=== PATIENT | female | born 1985 | race African-American/Black ===

== ENCOUNTER 2019-04-11 23:25 | Inpatient (IN) | payer OTHER ==
[2019-04-12] MEDS: LACTATED RINGER'S 500 ML IV (01:05)
[2019-04-12 01:25] LABS: ADD MAN DIFF? NO
[2019-04-12 01:32] LABS: WHITE BLOOD COUNT 7.2 10^3/ul (4.8-10.8)
[2019-04-12 01:32] LABS: BASOPHIL # 0.1 10^3/ul (0.0-0.1); BASOPHILS % 0.7 % (0.0-2.0); EOSINOPHILS # 0.2 10^3/ul (0.0-0.5); EOSINOPHILS % 3.1 % (0.0-7.0); HEMATOCRIT 31.7 % (37.0-47.0); HEMOGLOBIN 10.2 g/dl (12.0-16.0); LYMPHOCYTES # 1.4 10^3/ul (0.8-2.9); LYMPHOCYTES % 19.6 % (15.0-51.0); MEAN CORPUSCULAR HEMOGLOBIN 29.1 pg (29.0-33.0); MEAN CORPUSCULAR HGB CONC 32.2 g/dl (32.0-37.0); MEAN CORPUSCULAR VOLUME 90.6 fl (82.0-101.0); MONOCYTE # 0.7 10^3/ul (0.3-0.9); MONOCYTES % 9.4 % (0.0-11.0); NEUTROPHIL # 4.8 10^3/ul (1.6-7.5); NEUTROPHILS % 66.5 % (39.0-77.0); PLATELET COUNT 164 10^3/UL (140-415); RED CELL DISTRIBUTION WIDTH 13.6 % (11.5-14.5)
[2019-04-12 01:36] LABS: ADD UMIC NO; UR ASCORBIC ACID NEGATIVE (NEGATIVE); UR BILIRUBIN (Dip) NEGATIVE (NEGATIVE); UR BLOOD (Dip) NEGATIVE (NEGATIVE); UR CLARITY CLEAR (CLEAR); UR COLOR YELLOW (YELLOW); UR GLUCOSE (Dip) NEGATIVE (NEGATIVE); UR KETONES (Dip) 1+ mg/dL (NEGATIVE); UR LEUKOCYTE ESTERASE (Dip) NEGATIVE Leu/ul (NEGATIVE); UR NITRITE (Dip) NEGATIVE (NEGATIVE); UR SPECIFIC GRAVITY (Dip) 1.014 (1.003-1.030); UR TOTAL PROTEIN (Dip) NEGATIVE (NEGATIVE); UR UROBILINOGEN (Dip) NEGATIVE (NEGATIVE)
[2019-04-12 01:52] LABS: ALANINE AMINOTRANSFERASE 15 IU/L (13-69); ALBUMIN 3.2 g/dl (3.3-4.9); ALKALINE PHOSPHATASE 142 IU/L (42-121); ANION GAP 6 (5-13); ASPARTATE AMINO TRANSFERASE 20 IU/L (15-46); BILIRUBIN,INDIRECT 0.6 mg/dl (0-1.1); BILIRUBIN,TOTAL 0.6 mg/dl (0.2-1.3); BLOOD UREA NITROGEN 3 mg/dl (7-20); CALCIUM 8.9 mg/dl (8.4-10.2); CARBON DIOXIDE 25 mmol/L (21-31); CHLORIDE 106 mmol/L (97-110); CREATININE 0.54 mg/dl (0.44-1.00); Estimated GFR > 60 mL/min (>60); GLUCOSE 87 mg/dl (70-220); INR 1.02; PARTIAL THROMBOPLASTIN TIME 27.5 Sec (23.0-35.0); POTASSIUM 3.2 mmol/L (3.5-5.1); PROTIME 13.5 Sec (11.9-14.9); PT RATIO 1.1; SODIUM 137 mmol/L (135-144); TOTAL PROTEIN 6.4 g/dl (6.1-8.1); URIC ACID 4.3 mg/dl (3.1-7.9)
[2019-04-12] MEDS: LACTATED RINGER'S 1,000 ML IV ×4 (02:13→21:44)
[2019-04-12] MEDS: TERBUTALINE 1 MG/ML INJ SC ×4 (02:18→11:40)
[2019-04-12 02:22] LABS: HEPATITIS B SURFACE ANTIGEN NEGATIVE (NEGATIVE)
[2019-04-12] MEDS: BETAMET NA PHOS/AC(6 MG/ML) 2 ML INJ SYG IM ×2 (03:18→14:47)
[2019-04-12] MEDS ORDERED: CARBOPROST 250 MCG INJ IM ×2 (12:00→18:30)
[2019-04-12] MEDS ORDERED: OXYTOCIN 30 UNITS/LR 500 ML IV ×2 (12:00→18:30)
[2019-04-12] MEDS: CEFAZOLIN 2 GM/50 ML (PMX) 50 ML IVPB (12:00)
[2019-04-12] MEDS ORDERED: MISOPROSTOL 200 MCG TAB PR ×2 (12:00→18:30)
[2019-04-12] MEDS ORDERED: METHYLERGONOVINE 0.2 MG INJ IM ×2 (12:00→18:30)
[2019-04-12] MEDS ORDERED: CEFAZOLIN 2 GM/50 ML (PMX) 50 ML IVPB (12:30)
[2019-04-12] MEDS: AMPICILLIN 2 GM/NS (PMX) 100 ML IV (16:00)
[2019-04-12] MEDS: NACL 0.9% 3 ML SYG IV (16:09)
[2019-04-12] MEDS: ONDANSETRON 4 MG INJ IV (16:10)
[2019-04-12] MEDS: CITRIC ACID/NA CITRATE 30 ML CUP PO (16:10)
[2019-04-12] MEDS ORDERED: morphine SULFATE/PF (10 MG/10 ML) INJ (16:36)
[2019-04-12] MEDS ORDERED: OXYTOCIN 10 UNIT INJ (16:36)
[2019-04-12] MEDS ORDERED: METOCLOPRAMIDE 10 MG INJ (16:36)
[2019-04-12 17:14] LABS: RAPID PLASMA REAGIN NONREACTIVE (NR)
[2019-04-12] MEDS ORDERED: ONDANSETRON 4 MG INJ IV ×2 (17:30)
[2019-04-12] MEDS ORDERED: TRIMETHOBENZAMIDE 100 MG/ML VIAL IM ×2 (17:30)
[2019-04-12] MEDS ORDERED: DIPHENHYDRAMINE 50 MG INJ IV ×2 (17:30)
[2019-04-12] MEDS ORDERED: LABETALOL HCL 20MG INJ IV (17:30)
[2019-04-12] MEDS ORDERED: MEPERIDINE 25 MG INJ IV (17:30)
[2019-04-12] MEDS ORDERED: morphine 2 MG INJ IV ×2 (17:30)
[2019-04-12] MEDS ORDERED: ALBUTEROL 0.083% (NEB) 2.5 MG/3 ML AMP HHN (17:30)
[2019-04-12] MEDS ORDERED: IPRATROPIUM (NEB) 0.5 MG/2.5 ML AMP HHN (17:30)
[2019-04-12] MEDS ORDERED: EPHEDrine 25 MG/5 ML SYG IV (17:30)
[2019-04-12] MEDS ORDERED: hydrALAzine 20 MG INJ IV (17:30)
[2019-04-12] MEDS ORDERED: FENTAnyl 50 MCG/ML VIAL IV ×3 (17:30)
[2019-04-12] MEDS ORDERED: MIDAZOLAM 1 MG/ML 2 ML INJ IV (17:30)
[2019-04-12] MEDS ORDERED: NALOXONE (0.4 MG/ML) INJ IV (17:30)
[2019-04-12] MEDS ORDERED: NALBUPHINE HCL (10 MG/1 ML) INJ IV (17:30)
[2019-04-12] MEDS ORDERED: HYDROmorphONE 1 MG/5 ML IV SYRINGE IV ×2 (17:30)
[2019-04-12] MEDS ORDERED: KETAMINE (50 MG/ML) 10 ML VIAL (17:32)
[2019-04-12] MEDS ORDERED: KETOROLAC 30 MG INJ (17:33)
[2019-04-12] MEDS ORDERED: FENTAnyl 50 MCG/ML VIAL (17:38)
[2019-04-12 18:17] LABS: CBV Base Excess -4.6 mmol/L; CBV COHb 0.4 %; CBV Oxygen Sat 71.6 mmHG; Cord Blood Venous pO2 29.3 mmHG (15.0-45.0); Fraction OxyHgb Cord Venous 70.5 %; MODE ROOM AIR; MetHgb Cord Venous 1.2 %; Sample Type CBV; Site CORD
[2019-04-12 18:18] LABS: Arterial Cord Blood pCO2 32.8 mmHG (25-50); CBA Base Excess -5.2 mmol/L; CBA COHb 0.8 %; CBA Oxygen Sat 78.4 mmHG; CBA Total Hemglobin 12.4 g/dl; Cord Blood Arterial pO2 33.3 mmHG (15.0-45.0); Fraction OxyHgb Cord Arterial 76.9 %; MODE ROOM AIR; MetHgb Cord Arterial 1.1 %; Sample Type CBA; Site CORD
[2019-04-12] MEDS ORDERED: LANOLIN HPA 1 PKT TOP (18:30)
[2019-04-12] MEDS ORDERED: METHYLERGONOVINE 0.2 MG TAB PO (18:30)
[2019-04-12] MEDS: OXYTOCIN 30 UNITS/LR 500 ML IV (19:26)
[2019-04-12] MEDS: AMPICILLIN 1 GM/NS (PMX) 50 ML IV (20:00)
[2019-04-12] MEDS: HYDROmorphONE 1 MG/5 ML IV SYRINGE IV (20:08)
[2019-04-12] MEDS: SENNA/DOCUSATE NA (8.6MG/50MG) TAB PO (22:30)
[2019-04-13] MEDS: KETOROLAC 30 MG INJ IV ×2 (00:13→10:29)
[2019-04-13] MEDS: AMPICILLIN 1 GM/NS (PMX) 50 ML IV ×2 (04:00)
[2019-04-13] MEDS: NACL 0.9% 3 ML SYG IV (05:37)
[2019-04-13] MEDS: LACTATED RINGER'S 1,000 ML IV ×2 (06:03→14:29)
[2019-04-13 08:47] LABS: ADD MAN DIFF? NO
[2019-04-13 08:54] LABS: WHITE BLOOD COUNT 20.1 10^3/ul (4.8-10.8)
[2019-04-13 08:54] LABS: ABNORMAL IP MESSAGE 1; BASOPHILS % 0.1 % (0.0-2.0); LYMPHOCYTES # 1.1 10^3/ul (0.8-2.9); LYMPHOCYTES % 5.3 % (15.0-51.0); MEAN CORPUSCULAR HEMOGLOBIN 29.3 pg (29.0-33.0); MEAN CORPUSCULAR HGB CONC 32.1 g/dl (32.0-37.0); MEAN CORPUSCULAR VOLUME 91.2 fl (82.0-101.0); MEAN PLATELET VOLUME 12.9 fl (7.4-10.4); MONOCYTE # 1.6 10^3/ul (0.3-0.9); MONOCYTES % 7.8 % (0.0-11.0); NEUTROPHIL # 17.2 10^3/ul (1.6-7.5); NEUTROPHILS % 85.6 % (39.0-77.0); PLATELET COUNT 181 10^3/UL (140-415); RED BLOOD COUNT 3.07 10^6/ul (4.20-5.40); RED CELL DISTRIBUTION WIDTH 13.7 % (11.5-14.5)
[2019-04-13 08:59] LABS: POSITIVE DIFF @See below
[2019-04-13] MEDS: SENNA/DOCUSATE NA (8.6MG/50MG) TAB PO ×2 (09:01→20:35)
[2019-04-13 09:23] LABS: ANION GAP 7 (5-13); BLOOD UREA NITROGEN 3 mg/dl (7-20); CALCIUM 9.2 mg/dl (8.4-10.2); CARBON DIOXIDE 25 mmol/L (21-31); CHLORIDE 105 mmol/L (97-110); CREATININE 0.58 mg/dl (0.44-1.00); Estimated GFR > 60 mL/min (>60); GLUCOSE 96 mg/dl (70-220); POTASSIUM 4.2 mmol/L (3.5-5.1); SODIUM 137 mmol/L (135-144)
[2019-04-13] MEDS: HYDROCODONE/APAP (5/325) TAB PO ×2 (17:51→22:09)
[2019-04-13] MEDS: FERROUS SULFATE (EC) 325 MG TAB PO (20:35)
[2019-04-14] MEDS: HYDROCODONE/APAP (5/325) TAB PO ×4 (04:52→17:51)
[2019-04-14 07:51] LABS: ADD MAN DIFF? NO
[2019-04-14 07:58] LABS: BASOPHILS % 0.1 % (0.0-2.0); EOSINOPHILS # 0.2 10^3/ul (0.0-0.5); EOSINOPHILS % 1.6 % (0.0-7.0); HEMATOCRIT 29.1 % (37.0-47.0); HEMOGLOBIN 8.9 g/dl (12.0-16.0); LYMPHOCYTES # 1.7 10^3/ul (0.8-2.9); LYMPHOCYTES % 13.4 % (15.0-51.0); MEAN CORPUSCULAR HEMOGLOBIN 28.3 pg (29.0-33.0); MEAN CORPUSCULAR HGB CONC 30.6 g/dl (32.0-37.0); MEAN CORPUSCULAR VOLUME 92.4 fl (82.0-101.0); MEAN PLATELET VOLUME 12.7 fl (7.4-10.4); MONOCYTE # 1.2 10^3/ul (0.3-0.9); MONOCYTES % 9.5 % (0.0-11.0); NEUTROPHIL # 9.4 10^3/ul (1.6-7.5); NEUTROPHILS % 73.4 % (39.0-77.0); NUCLEATED RED BLOOD CELLS% 0.2 /100WBC (0.0-0.0); PLATELET COUNT 186 10^3/UL (140-415); RED BLOOD COUNT 3.15 10^6/ul (4.20-5.40); RED CELL DISTRIBUTION WIDTH 13.9 % (11.5-14.5)
[2019-04-14 07:58] LABS: WHITE BLOOD COUNT 12.8 10^3/ul (4.8-10.8)
[2019-04-14] MEDS: FERROUS SULFATE (EC) 325 MG TAB PO ×3 (09:39→21:19)
[2019-04-14] MEDS: SENNA/DOCUSATE NA (8.6MG/50MG) TAB PO ×2 (09:39→21:19)
[2019-04-14] MEDS: MAGNESIUM HYDROXIDE 30ML CUP PO (17:48)
[2019-04-14] MEDS: BISACODYL 10 MG SUPP PR (17:52)
[2019-04-14] MEDS: IBUPROFEN 800 MG TAB PO (21:38)
[2019-04-15] MEDS: HYDROCODONE/APAP (5/325) TAB PO ×2 (02:06→10:53)
[2019-04-15] MEDS: IBUPROFEN 800 MG TAB PO (04:17)
[2019-04-15] MEDS: MAGNESIUM HYDROXIDE 30ML CUP PO (05:09)
[2019-04-15] MEDS: BISACODYL 10 MG SUPP PR (05:09)
[2019-04-15 07:37] LABS: ADD MAN DIFF? NO
[2019-04-15 07:40] LABS: BASOPHIL # 0.1 10^3/ul (0.0-0.1); BASOPHILS % 0.6 % (0.0-2.0); EOSINOPHILS # 0.5 10^3/ul (0.0-0.5); EOSINOPHILS % 4.9 % (0.0-7.0); HEMATOCRIT 28.3 % (37.0-47.0); HEMOGLOBIN 8.7 g/dl (12.0-16.0); LYMPHOCYTES # 1.5 10^3/ul (0.8-2.9); MEAN CORPUSCULAR HEMOGLOBIN 28.5 pg (29.0-33.0); MEAN CORPUSCULAR HGB CONC 30.7 g/dl (32.0-37.0); MEAN CORPUSCULAR VOLUME 92.8 fl (82.0-101.0); MEAN PLATELET VOLUME 12.3 fl (7.4-10.4); MONOCYTE # 0.8 10^3/ul (0.3-0.9); MONOCYTES % 8.3 % (0.0-11.0); NEUTROPHIL # 6.8 10^3/ul (1.6-7.5); NEUTROPHILS % 69.7 % (39.0-77.0); PLATELET COUNT 173 10^3/UL (140-415); RED BLOOD COUNT 3.05 10^6/ul (4.20-5.40); RED CELL DISTRIBUTION WIDTH 13.9 % (11.5-14.5)
[2019-04-15 07:40] LABS: WHITE BLOOD COUNT 9.7 10^3/ul (4.8-10.8)
[2019-04-15] MEDS: MEASLES,MUMPS,RUBELLA VACCINE INJ SC* (09:00)
[2019-04-15] MEDS: DIPHTH/TET/ACEL PERTUSS (ADULT) 0.5 ML VIAL IM* (09:00)
[2019-04-15] MEDS: SENNA/DOCUSATE NA (8.6MG/50MG) TAB PO (10:54)
[2019-04-15] MEDS: FERROUS SULFATE (EC) 325 MG TAB PO (10:54)
== END 2019-04-15 11:50 | disposition home or self-care (01) | DRG 783 ==
LOC: OBT 23:25 → L-D 23:25 → PP1 04-12 22:25
PROC: 10D00Z1 Extraction of Products of Conception, Low, Open Approach (ICD-10-PCS; principal; 2019-04-12 16:30)
PROC: 0UT70ZZ Resection of Bilateral Fallopian Tubes, Open Approach (ICD-10-PCS; 2019-04-12 16:30)
DX: O65.5 Obstructed labor due to abnormality of maternal pelvic organs (principal); O60.13X0 Preterm labor second trimester with preterm delivery third trimester, not applicable or unspecified; O34.211 Maternal care for low transverse scar from previous cesarean delivery; Z3A.35 35 weeks gestation of pregnancy; Z37.0 Single live birth; Z30.2 Encounter for sterilization
CPT/HCPCS: 36415; 36600; 76815; 76818; 80048; 80053; 81003; 82803; 84560; 85025; 85384; 85610; 85730; 86592; 86850; 86900; 86901; 86920; 87340; 88302; 99464